=== PATIENT | female | born 1970 | race African-American/Black ===

== ENCOUNTER → 2016-06-09 | Outpatient (CLI) | payer BC ==
[2014-12-03 12:14] VITALS: BP 122/74
--- NOTE | 2016-06-09 16:27 | KCIC ---
Ultrasound Pelvis Indication:Reason For Study Reason: FOLLOW UP LEFT OVARIAN CYST / Spl. Instructions: / History: Technique: Multiple real-time grayscale images were obtained over the pelvis transabdominally and transvaginally. Color Doppler imaging was utilized. Findings: The uterus is normal in size measuring cm. The endometrium is also within normal limits measuring 8 mm in thickness. A cervical nabothian cyst measures 1.6 centimeters. There is a solid myometrial mass in the posterior uterine body that measures 1.2 centimeters likely representing a fibroid. The right ovary measures 1.8 x 1.5 x 3.4cm. No abnormal right ovarian lesions are identified. Normal blood flow is identified. The left ovary measures 3.3 x 1.9 x 2.5cm. There is a left ovarian cyst measuring 2.0 centimeters in size. Normal blood flow is identified. No pelvic free fluid is identified. Impression: - 2 centimeter left ovarian cyst which appears relatively simple in its appearance. - 1.2 centimeter posterior uterine fibroid. Electronically signed by: Vin Luna (Jun 09, 2016 16:26:52)
== END | disposition home or self-care (01) ==
LOC: KCIC US 15:39
PROVIDERS: ATTEND Obstetrics & Gynecology
DX: N83.202 Unspecified ovarian cyst, left side (principal)
CPT/HCPCS: 76830; 76856